=== PATIENT | male | born 1990 | race Caucasian/White ===

== ENCOUNTER 2017-06-01 09:05 | Emergency (ER) | payer MEDICAID ==
[2017-06-01 09:13] VITALS: TEMP 97.3
--- NOTE | 2017-06-01 09:29 | CPEKG ---
Heart Rate: 49 RR Interval: 1224 P-R Interval: 152 QRSD Interval: 98 QT Interval: 436 QTC Interval: 394 P [place]: 65 QRS [place]: 67 T Wave [place]: 51 EKG Severity - OTHERWISE NORMAL ECG - EKG Impression: SINUS BRADYCARDIA EKG Impression: ST ELEV, PROBABLE NORMAL EARLY REPOL PATTERN Electronically Signed By: Guilherme Kearney 01-Jun-2017 15:45:15
[2017-06-01] MEDS ORDERED: LORazepam 2 MG/ML INJ IVP ONE (10:11)
[2017-06-01] MEDS ORDERED: NS 1,000 ML IV ONE (10:11)
--- NOTE | 2017-06-01 10:14 | EDPHY ---
H & P Smoking Status: Never smoked Time Seen by Provider: 06/01/17 09:24 HPI/ROS: CHIEF COMPLAINT: Chest pain HISTORY OF PRESENT ILLNESS: 27-year-old male presents to the emergency department with pain in his chest. The symptoms began 3 or 4 days ago. He states that he bikes daily and has never had any this pain in his chest with activity or with biking. He states that he has these episodes of pain in his chest typically when he is at home trying to relax or trying to sleep. He does not feel acutely short of breath although he states that he is now feeling very anxious. He does have a history of generalized anxiety disorder. He does take propranolol every day for this. He denies fevers, chills, URI symptoms. He does admit to using cocaine 2 weeks ago and then again a few days later. Denies any other substance abuse. Denies abdominal pain or vomiting. REVIEW OF SYSTEMS: Constitutional: No fever, no chills. Eyes: No double or blurry vision. ENT: No sore throat. Respiratory: No cough, no shortness of breath. Cardiac: chest pain. Gastrointestinal: No abdominal pain, vomiting or diarrhea. Genitourinary: No dysuria. Musculoskeletal: No neck or back pain. Skin: No rashes. Neurological: No headache. (Angeles Ramos) Past Medical/Surgical History: Anxiety, substance abuse (Angeles Ramos) Social History: Single (Angeles Ramos) Physical Exam: General Appearance: Alert, no distress. 113/92. Eyes: Pupils equal and round. Extraocular motions are all intact. ENT: Mouth: Mucous membranes moist. Respiratory: No wheezing, rhonchi, or rales, lungs are clear to auscultation. Patient has reproducible pain with palpation to the anterior aspect of his chest. No palpable crepitus or other bony abnormality. Cardiovascular: Regular rate and rhythm. Gastrointestinal: Abdomen is soft and nontender, no masses, no rebound or guarding, bowel sounds normal. Neurological: Alert and oriented x 3, cranial nerves II through XII grossly intact Skin: Warm and dry, no rashes. Musculoskeletal: Nontender to palpate along the cervical, thoracic or lumbar spine. Neck is supple. Extremities: Full range of motion and no peripheral edema. Psychiatric: Patient is oriented X 3, there is no agitation. (Angeles Ramos) Constitutional: Initial Vital Signs Temperature (C) 36.3 C 06/01/17 09:09 Heart Rate 60 06/01/17 09:09 Respiratory Rate 19 06/01/17 09:09 Blood Pressure 113/92 H 06/01/17 09:09 O2 Sat (%) 97 06/01/17 09:09 O2 Delivery Mode Room Air Allergies/Adverse Reactions: No Known Allergies Allergy (Verified 06/01/17 09:06) Home Medications: Medication Instructions Recorded Caffeine 06/01/17 Propranolol HCl 06/01/17 Medical Decision Making ED Course/Re-evaluation: 27-year-old male presents with chest pain, feeling dizzy and nauseous. He is extremely anxious. He was given a mg of Ativan IV normal saline. Laboratory studies were all within normal limits. Patient does have reproducible pain with palpation to the anterior aspect of the chest wall. No palpable crepitus or other bony abnormality. Patient was also given 30 mg of IV Toradol. Patient was reassured. (Angeles Ramos) I did not see this patient while he was in the emergency department. However his care was discussed with the PA while the patient was in the department. I agree with treatment plan and management (Guilherme Kearney) Differential Diagnosis: Chest pain including but not limited to costochondritis, myocardial ischemia, pulmonary embolus, chest wall pain, pleural inflammation and pulmonary infectious causes. (Angeles Ramos) - Data Points Laboratory Results: Laboratory Results 06/01/17 10:11 06/01/17 Unknown Medications Given: Discontinued Medications Sodium Chloride (Ns) 1,000 mls @ 0 mls/hr IV ONCE ONE PRN Reason: Wide Open Stop: 06/01/17 10:12 Last Admin: 06/01/17 10:26 Dose: 1,000 mls Ketorolac Tromethamine (Toradol) 30 mg IVP EDNOW ONE Stop: 06/01/17 12:09 Last Admin: 06/01/17 12:10 Dose: 30 mg Lorazepam (Ativan Injection) 1 mg IVP EDNOW ONE Stop: 06/01/17 10:12 Last Admin: 06/01/17 10:26 Dose: 1 mg Departure - Departure Disposition: Home, Routine, Self-Care Clinical Impression: Chest wall pain, Anxiety Condition: Good Instructions: Anxiety (ED), Chest Wall Pain (ED) Additional Instructions: Return to the emergency department if he notices any change in symptoms or if you feel worse in any way. Referrals: Guilherme Ortiz [Doctor of Osteopathy] - As per Instructions (Primary care provider substation operator helper generation)
[2017-06-01 10:18] LABS: PLATELET COUNT 274 10^3/uL (150-400)
[2017-06-01 11:11] VITALS: RESP 18
[2017-06-01] MEDS ORDERED: KETOROLAC 30 MG/1 ML SDV ONE (12:02)
[2017-06-01] MEDS ORDERED: KETOROLAC 30 MG/1 ML SDV IVP ONE (12:08)
[2017-06-01 12:13] VITALS: O2SAT 95
[2017-06-01 13:11] VITALS: BP 102/68; PULSE 69
== END 2017-06-01 13:09 | disposition home or self-care (01) ==
DX: R07.89 Other chest pain (principal); F41.9 Anxiety disorder, unspecified
CPT/HCPCS: 96374; J1885; J2060